=== PATIENT | female | born 1930 ===

== ENCOUNTER 2017-11-26 09:18 | Outpatient (CLI) | payer MEDICARE, OTHER ==
--- NOTE | 2017-11-26 14:53 | Ultrasound Report ---
ABDOMINAL ULTRASOUND: 11/26/17 09:18:00 CLINICAL: Right upper quadrant abdominal pain. FINDINGS: High-resolution ultrasound demonstrates a normal liver with normal size, contour and overall echogenicity. No liver mass identified. Normal hepatic vasculature and inferior vena cava. Normal bile ducts status post cholecystectomy. The common bile duct measures 5.1 mm diameter. The pancreas is not well imaged because of bowel gas and body habitus. Normal abdominal aorta. A normal spleen measures 8.5 x 3.3 x 3.6 cm. Bilateral benign renal cysts in otherwise normal kidneys. Normal non-dilated renal collecting systems and ureters. The right kidney measures 10.0 x 5.2 x 4.4 cm. The largest right renal cyst is in the lower pole and measures 4.2 x 3.5 x 3.9 cm. The left kidney measures 14.0 x 5.8 x 4.8 cm. The largest left renal cyst is in the upper pole and measures 3.8 x 3.3 x 3.5 cm. No renal mass or calculus identified. No ascites or mass. IMPRESSION: 1. Normal biliary tract status post cholecystectomy. 2. Limited imaging of the pancreas. 3. Bilateral benign renal cysts.
== END 2017-11-26 09:19 | disposition home or self-care (01) ==
LOC: SPVIMAG 09:18
PROVIDERS: ATTEND Family Medicine
DX: N28.1 Cyst of kidney, acquired (principal); Z90.49 Acquired absence of other specified parts of digestive tract
CPT/HCPCS: 76700